=== PATIENT | female | born 1990 ===

== ENCOUNTER 2019-10-15 14:45 | Outpatient (CLI) | payer MEDICAID, OTHER ==
[~2019-10-15] VITALS: Ht 157.5 cm; Wt 96.9 kg
--- NOTE | 2019-10-15 14:52 | NUR ---
ADE REBOLLEDO presented to unit via AMBULATORY from ED, accompanied by SISTER, with c/o CONTRACTIONS;LEAKING FLUID. ADE REBOLLEDO weighed, gowned, voided, and to bed. EFHM and TOCO applied, VS taken. ADE REBOLLEDO oriented to bed controls, call light, TV, heat, and A/C controls.
[2019-10-15 15:05] VITALS: BP 118/67
[2019-10-15 15:43] LABS: BILIRUBIN,URINE NEGATIVE (NEGATIVE); COLOR,URINE YELLOW; GLUCOSE, URINE (UA) NEGATIVE (NEGATIVE); KETONES,URINE TRACE (NEGATIVE); LEUKOCYTE ESTERASE ,URINE 3+ (NEGATIVE); NITRITE,URINE NEGATIVE (NEGATIVE); PH,URINE 6.5 (5-9); PROTEIN,URINE NEGATIVE (NEGATIVE)
[2019-10-15 15:56] LABS: BACTERIA,URINE LARGE /HPF; CLARITY,URINE SL CLOUDY; WBC,URINE 25-50 /HPF
[2019-10-15 16:00] VITALS: BP 118/67
--- NOTE | 2019-10-15 16:05 | NUR ---
This RN called Dr Dey at this time with pt report. Pt is a pt of Dr Elina Dorantes out of [place], [place]. States she has been mitchell every 6-8 minutes since last night around 10pm and leaking fluid. Pt states her last appointment was friday, SVE was 1cm. This RN performs SVE and called pt 1cm, thick, intact BOW, no leaking, negative amnioswap. Pt urine sent to lab for urinalysis, results read to Dr Dey. No UC noted from TOCO, FHT reactive. Dr Dey states to call in RX for Keflex 500 TID for 7 days, to encourage pt to hydrate, and to follow up with her primary OB in [place].
[2019-10-15] MEDS ORDERED: CEPH-507 PO (16:16)
--- NOTE | 2019-10-18 08:46 | Physician Query-Final Dx ---
Clinic Account Progress/Dx Physician Query: Please give diagnosis Please include # weeks gestation Date of Service Oct 15, 2019 at 14:45 PHIL HERRERA Oct 18, 2019 08:46
== END 2019-10-15 16:40 | disposition home or self-care (01) ==
LOC: WSo 14:45 → LDRP 14:46 → WSo 16:40
PROVIDERS: ATTEND Family Medicine
DX: O62.9 Abnormality of forces of labor, unspecified (principal); Z3A.38 38 weeks gestation of pregnancy
CPT/HCPCS: 81000; 87088; 99214